=== PATIENT | female | born 1955 | race Caucasian/White ===

== ENCOUNTER 2018-01-10 11:48 | Emergency (ER) | payer MEDICAID ==
[~2018-01-10] VITALS: Ht 160 cm; Wt 74.8 kg
[2018-01-10] MEDS ORDERED: IBUPROFEN 400 MG TABLET PO ONE (12:30)
[2018-01-10] MEDS ORDERED: ACETAMINOPHEN 325 MG TABLET PO ONE (12:30)
[2018-01-10] MEDS ORDERED: ACETAMINOPHEN 325 MG TABLET ONE (12:36)
[2018-01-10] MEDS ORDERED: IBUPROFEN 400 MG TABLET ONE (12:36)
--- NOTE | 2018-01-10 14:05 | NUR ---
MSE COMPLETED, PT D/C'D HOME, ACI GIVEN. PT AMBULATED W/O DIFF/TOOK ALL BELONGINGS.
[2018-01-10 14:12] VITALS: BP 119/71
== END 2018-01-10 14:05 | disposition home or self-care (01) ==
LOC: ER 11:48
DX: S29.012A Strain of muscle and tendon of back wall of thorax, initial encounter (principal); M25.511 Pain in right shoulder; Z88.0 Allergy status to penicillin; W01.0XXA Fall on same level from slipping, tripping and stumbling without subsequent striking against object, initial encounter; Y93.89 Activity, other specified; Y92.89 Other specified places as the place of occurrence of the external cause; Y99.8 Other external cause status
CPT/HCPCS: 71046; 72170; 73010; A4663

== ENCOUNTER 2018-07-04 12:28 | Emergency (ER) | payer MEDICAID ==
[~2018-07-04] VITALS: Ht 160 cm; Wt 74.8 kg
--- NOTE | 2018-07-04 12:41 | NUR ---
PT IS IN ROOM #2B. DR SANCHEZ EVALUATED THE PT.
[2018-07-04 13:02] VITALS: BP 131/73
--- NOTE | 2018-07-04 13:02 | NUR ---
PT WAS D/C'd TO HOME. D/C INSTRUCTIONS GIVEN TO THE PT.
== END 2018-07-04 13:04 | disposition home or self-care (01) ==
LOC: ER 12:28
DX: H66.91 Otitis media, unspecified, right ear (principal); H60.91 Unspecified otitis externa, right ear; Z88.0 Allergy status to penicillin
CPT/HCPCS: A4663

== ENCOUNTER 2019-03-09 10:17 | Emergency (ER) | payer MEDICARE, MEDICAID ==
[~2019-03-09] VITALS: Ht 162.6 cm; Wt 72.6 kg
[2019-03-09] MEDS ORDERED: BENZONATATE 100 MG CAPSULE ONE (10:35)
--- NOTE | 2019-03-09 10:36 | NUR ---
patient was seen by MD. She is awake and alert in no acute distress. Medication given as ordered...
[2019-03-09] MEDS ORDERED: ALBUTEROL SULFATE 2.5 MG/3 ML NEBU ONE (10:45)
[2019-03-09] MEDS ORDERED: ALBUTEROL SULFATE 2.5 MG/3 ML NEBU NEB ONE (10:45)
[2019-03-09] MEDS ORDERED: BENZONATATE 100 MG CAPSULE PO ONE (10:45)
--- NOTE | 2019-03-09 11:15 | NUR ---
PATIENT STATES SHE "FEELS BETTER" DC AND FOLLOW UP INSTRUCTIONS GIVEN AND EXPLAINED TO PATIENT WHO STATES SHE UNDERSTANDS ALL INSTRUCTIONS.
== END 2019-03-09 11:18 | disposition home or self-care (01) ==
LOC: ER 10:17
DX: J20.9 Acute bronchitis, unspecified (principal); R51 Headache; H92.03 Otalgia, bilateral; Z88.0 Allergy status to penicillin
CPT/HCPCS: A4663